=== PATIENT | female | born 1970 | race Caucasian/White ===

== ENCOUNTER 2018-11-17 19:49 | Emergency (ER) | payer SELFPAY ==
[~2018-11-17] VITALS: Ht 165.1 cm; Wt 70.3 kg
[2018-11-17 19:52] VITALS: Ht 165.1 cm; Wt 70.3 kg
[2018-11-17 20:45] LABS: BASOPHIL % 0.4 % (0-2); PLATELET COUNT 270 x10^3mcL (130-400)
[2018-11-17 20:46] LABS: RED CELL DISTRIBUTION WIDTH 14.6 % (11.5-14.5)
[2018-11-17 20:47] LABS: microscopic required? NO
[2018-11-17 20:52] LABS: UA SPECIFIC GRAVITY 1.015 (1.005-1.035); urine erythrocyte NEGATIVE (NEGATIVE)
[2018-11-17 20:53] LABS: CARBON DIOXIDE 28.1 mmol/L (21-32); CHLORIDE SERUM 104 mmol/L (98-107); CREATININE SERUM 0.8 mg/dL (0.6-1.0); GFR1 > 60 mL/min; GLUCOSE SERUM 95 mg/dL (74-106); POTASSIUM SERUM 3.7 mmol/L (3.5-5.1); SODIUM SERUM 140 mmol/L (136-145)
[2018-11-17 20:58] LABS: ALKALINE PHOSPHATASE 115 U/L (46-116); ALT/SGPT 42 U/L (14-59); AST/SGOT 18 U/L (15-37); BILIRUBIN TOTAL 0.29 mg/dL (0.20-1.00); C REACTIVE PROTEIN 1.3 mg/dL (<=0.9); TOTAL PROTEIN, SERUM 8.5 g/dL (6.4-8.2)
[2018-11-17 21:33] LABS: ERYTHROCYTE SED RATE 12 mm/hr (0-20)
[2018-11-17 22:50] VITALS: BP 123/79
== END 2018-11-17 22:50 | disposition home or self-care (01) ==
LOC: ED 19:49
PROVIDERS: Emergency Medicine
DX: M54.6 Pain in thoracic spine (principal); M79.89 Other specified soft tissue disorders
CPT/HCPCS: J1885; Q0092